=== PATIENT | male | born 1965 | race African-American/Black ===

== ENCOUNTER 2018-08-01 12:33 | Emergency (ER) | payer MEDICAID ==
[~2018-08-01] VITALS: Ht 175.3 cm; Wt 81.6 kg
[2018-08-01 13:42] LABS: BASOPHILS % 0.8 % (0.0-2.0); EOSINOPHILS % 1.3 % (0.0-5.0); HEMATOCRIT. 36.7 % (42.0-52.0); HEMOGLOBIN. 12.6 g/dL (14.0-18.0); LYMPHOCYTES % 9.1 % (20.0-50.0); MEAN CORPUSCULAR HEMOGLOBIN 32.2 pg (28.0-32.0); MEAN CORPUSCULAR VOLUME 93.7 fL (80.0-94.0); MEAN PLATELET VOLUME 9.9 fl (7.4-10.4); MONOCYTES % 7.5 % (2.0-8.0); NEUTROPHILS % 81.3 % (40.0-76.0); PLATELET 173 x1000/uL (130-400); RED BLOOD CELL COUNT 3.92 mill/uL (4.7-6.1); RED CELL DISTRIBUTION WIDTH 15.1 % (11.6-14.6)
[2018-08-01 13:49] LABS: CHLORIDE 110 mEq/L (98-107)
[2018-08-01 13:56] LABS: ETHANOL BLOOD < 10 mg/dL
[2018-08-01] MEDS ORDERED: ASPIRIN 81MG TABLET PO ONE (14:00)
[2018-08-01 14:08] LABS: INR 1.1; PARTIAL THROMBOPLASTIN TIME 29.9 sec (23.4-31.0); PROTHROMBIN TIME 10.6 sec (9.1-11.1)
[2018-08-01 15:06] LABS: CLARITY URINE CLEAR (CLEAR); COLOR URINE YELLOW (YELLOW); KETONES URINE NEGATIVE (NEGATIVE); LEUKOCYTE ESTERASE URINE NEGATIVE (NEGATIVE); NITRITE URINE NEGATIVE (NEGATIVE); OCCULT BLOOD URINE NEGATIVE (NEGATIVE); PROTEIN URINE TRACE (NEGATIVE); SPECIFIC GRAVITY URINE 1.008 (1.005-1.030); UROBILINOGEN URINE 0.2 E.U./dL (0.2-1.0)
[2018-08-01] MEDS ORDERED: FUROSEMIDE 20MG/2ML VIAL IVP ONE (15:30)
[2018-08-01 15:32] LABS: *AMPHETAMINES SCREEN URINE NEGATIVE (NEGATIVE); *BARBITURATES SCREEN URINE NEGATIVE (NEGATIVE); *BENZODIAZEPINES SCREEN URINE NEGATIVE (NEGATIVE); *COCAINE SCREEN URINE NEGATIVE (NEGATIVE); CANNABINOID URINE SCREEN PRESUMTIVE POSITIVE (NEGATIVE); METHADONE URINE SCREEN NEGATIVE (NEGATIVE); OPIATES URINE SCREEN NEGATIVE (NEGATIVE); PHENCYCLIDINE URINE SCREEN NEGATIVE (NEGATIVE)
[2018-08-01 16:00] LABS: TOTAL IRON BINDING CAPACITY 275 ug/dL (250-450)
[2018-08-01 19:22] VITALS: BP 122/81
[2018-08-01] MEDS ORDERED: AMLODIPINE 2.5MG TABLET PO SCH ×2 (21:00→21:15)
== END 2018-08-01 19:24 | disposition left against medical advice (07) ==
LOC: ER 12:33 → EDBEDREQ 14:23 → ER 19:24 → CANBEDREQ 19:37
DX: I13.0 Hypertensive heart and chronic kidney disease with heart failure and stage 1 through stage 4 chronic kidney disease, or unspecified chronic kidney disease (principal); N18.9 Chronic kidney disease, unspecified; I50.9 Heart failure, unspecified; F17.210 Nicotine dependence, cigarettes, uncomplicated; F12.10 Cannabis abuse, uncomplicated; D63.1 Anemia in chronic kidney disease; R73.9 Hyperglycemia, unspecified; Z60.2 Problems related to living alone
CPT/HCPCS: 36415; 71045; 80053; 80305; 81003; 83540; 83550; 83690; 83735; 83880; 84443; 84484; 85025; 85044; 85610; 85730; 93005; 96374; 99284; G0482; J1940

== ENCOUNTER 2019-10-01 23:42 | Inpatient (IN) | payer MEDICAID ==
[~2019-10-01] VITALS: Ht 180.3 cm; Wt 68.1 kg
[2019-10-02] VITALS (9 sets, daily range): BP systolic 172–217; BP diastolic 93–179
[2019-10-02 00:28] LABS: BASOPHILS % 0.4 % (0.0-2.0); EOSINOPHILS % 6.3 % (0.0-5.0); HEMOGLOBIN. 10.4 g/dL (14.0-18.0); LYMPHOCYTES % 26.9 % (20.0-50.0); MEAN CORPUSCULAR HEMOGLOBIN 30.9 pg (28.0-32.0); MEAN CORPUSCULAR VOLUME 92.1 fL (80.0-94.0); MEAN PLATELET VOLUME 9.4 fl (7.4-10.4); NEUTROPHILS % 59.4 % (40.0-76.0); PLATELET 204 x1000/uL (130-400); RED BLOOD CELL COUNT 3.37 mill/uL (4.7-6.1); RED CELL DISTRIBUTION WIDTH 15.5 % (11.6-14.6)
[2019-10-02 00:37] LABS: CHLORIDE 111 mEq/L (98-107); PROTHROMBIN TIME 10.2 sec (9.6-11.0)
[2019-10-02 00:42] LABS: ETHANOL BLOOD < 10 mg/dL
[2019-10-02 00:45] LABS: LDL CHOLESTEROL 101 mg/dL (5-100)
[2019-10-02] MEDS ORDERED: ASPIRIN 81MG TABLET PO ONE (00:45)
[2019-10-02] MEDS ORDERED: HYDRALAZINE 20MG/ML VIAL IV NR (01:15)
[2019-10-02 02:00] LABS: CLARITY URINE CLEAR (CLEAR); COLOR URINE YELLOW (YELLOW); KETONES URINE NEGATIVE (NEGATIVE); LEUKOCYTE ESTERASE URINE NEGATIVE (NEGATIVE); NITRITE URINE NEGATIVE (NEGATIVE); OCCULT BLOOD URINE NEGATIVE (NEGATIVE); PH URINE 5.5 (4.5-8.0); PROTEIN URINE 2+ (NEGATIVE); SPECIFIC GRAVITY URINE 1.013 (1.005-1.030); UROBILINOGEN URINE 0.2 E.U./dL (0.2-1.0)
[2019-10-02 02:24] LABS: *AMPHETAMINES SCREEN URINE NEGATIVE (NEGATIVE); *BARBITURATES SCREEN URINE NEGATIVE (NEGATIVE); *BENZODIAZEPINES SCREEN URINE NEGATIVE (NEGATIVE); *COCAINE SCREEN URINE NEGATIVE (NEGATIVE); METHADONE URINE SCREEN NEGATIVE (NEGATIVE); OPIATES URINE SCREEN NEGATIVE (NEGATIVE)
[2019-10-02 02:25] LABS: CANNABINOID URINE SCREEN PRESUMTIVE POSITIVE (NEGATIVE); PHENCYCLIDINE URINE SCREEN NEGATIVE (NEGATIVE)
[2019-10-02] MEDS ORDERED: ENOXAPARIN 40MG/0.4ML SYR SUBCUT SCH (06:45)
[2019-10-02] MEDS ORDERED: MAGNESIUM/ALUMINUM HYDROXIDE/SIMETHICONE 30ML UDC PO PRN (06:45)
[2019-10-02] MEDS ORDERED: GUAIFENESIN 200MG/10ML SUGAR FREE UDC PO PRN (06:45)
[2019-10-02] MEDS ORDERED: DIPHENHYDRAMINE 50MG/ML VIAL IV PRN (06:45)
[2019-10-02] MEDS ORDERED: ONDANSETRON HCL 4MG/2ML INJ IV PRN (06:45)
[2019-10-02] MEDS ORDERED: DOCUSATE SODIUM 100MG CAPSULE PO PRN (06:45)
[2019-10-02] MEDS ORDERED: LORAZEPAM 2MG/ML CPJ IV PRN (06:45)
[2019-10-02] MEDS ORDERED: MORPHINE SULFATE 2 MG/ML CPJ (NOT FOR IM USE) IV PRN (06:45)
[2019-10-02] MEDS ORDERED: IPRATROPIUM/ALBUTEROL 0.5-3(2.5)MG/3ML NEB HHN PRN (06:45)
[2019-10-02] MEDS: HYDRALAZINE 20MG/ML VIAL IV PRN ×2 (09:55→19:14)
[2019-10-02] MEDS: ASPIRIN 81MG EC TABLET PO SCH (09:55)
[2019-10-02] MEDS ORDERED: CLOPIDOGREL 75MG TABLET PO SCH (10:00)
[2019-10-02 11:40] LABS: CREATINE KINASE 61 IU/L (39-308)
[2019-10-02] MEDS: CLONIDINE 0.1MG TABLET PO PRN ×2 (12:57→23:54)
[2019-10-02] MEDS: SODIUM CHLORIDE 0.9% INJ 3ML FLUSH IVF SCH ×2 (14:00→22:00)
[2019-10-02 16:57] LABS: CREATINE KINASE 56 IU/L (39-308); HDL CHOLESTEROL 54 mg/dL (40-59); LDL CHOLESTEROL 100 mg/dL (5-100)
[2019-10-02 16:58] LABS: T4 FREE 1.08 ng/dL (0.76-1.46)
[2019-10-02 17:00] LABS: CREATINE KINASE MB FRACTION < 1.0 ng/mL (0.5-3.6)
[2019-10-02] MEDS ORDERED: ATORVASTATIN CALCIUM 20MG TABLET PO SCH (21:00)
[2019-10-03] VITALS (11 sets, daily range): BP systolic 147–203; BP diastolic 90–114
[2019-10-03] MEDS: SODIUM CHLORIDE 0.9% INJ 3ML FLUSH IVF SCH ×3 (06:46→21:23)
[2019-10-03 06:48] LABS: BASOPHILS % 1.2 % (0.0-2.0); HEMATOCRIT. 28.2 % (42.0-52.0); HEMOGLOBIN. 9.4 g/dL (14.0-18.0); LYMPHOCYTES % 16.3 % (20.0-50.0); MEAN CORPUSCULAR HEMOGLOBIN 30.4 pg (28.0-32.0); MEAN CORPUSCULAR VOLUME 91.8 fL (80.0-94.0); MEAN PLATELET VOLUME 8.7 fl (7.4-10.4); MONOCYTES % 7.6 % (2.0-8.0); NEUTROPHILS % 72.9 % (40.0-76.0); PLATELET 170 x1000/uL (130-400); RED BLOOD CELL COUNT 3.08 mill/uL (4.7-6.1); RED CELL DISTRIBUTION WIDTH 15.5 % (11.6-14.6)
[2019-10-03 08:08] LABS: CHLORIDE 112 mEq/L (98-107)
[2019-10-03 08:18] LABS: CREATINE KINASE 52 IU/L (39-308)
[2019-10-03 08:22] LABS: CREATINE KINASE MB FRACTION < 1.0 ng/mL (0.5-3.6)
[2019-10-03] MEDS: CLOPIDOGREL 75MG TABLET PO SCH (08:43)
[2019-10-03] MEDS: ASPIRIN 81MG EC TABLET PO SCH (08:43)
[2019-10-03] MEDS: AMLODIPINE 5MG TABLET PO SCH (10:15)
[2019-10-03] MEDS: HYDRALAZINE HCL 25MG TABLET PO SCH ×2 (13:47→21:24)
[2019-10-03] MEDS: CLONIDINE 0.1MG TABLET PO PRN (14:13)
[2019-10-03] MEDS: HYDRALAZINE 20MG/ML VIAL IV PRN (19:48)
[2019-10-03] MEDS: ATORVASTATIN CALCIUM 20MG TABLET PO SCH (21:23)
[2019-10-03] MEDS: CARVEDILOL 3.125 MG TABLET PO SCH (21:24)
[2019-10-03] MEDS: HYDROCODONE/ACETAMINOPHEN 10/325MG TABLET PO PRN (21:31)
[2019-10-04] VITALS (11 sets, daily range): BP systolic 133–195; BP diastolic 82–117
[2019-10-04] MEDS: CLONIDINE 0.1MG TABLET PO PRN ×2 (00:30→14:44)
[2019-10-04] MEDS: ACETAMINOPHEN 325MG TABLET PO PRN ×3 (04:22→18:54)
[2019-10-04] MEDS: HYDRALAZINE HCL 25MG TABLET PO SCH (06:09)
[2019-10-04] MEDS: SODIUM CHLORIDE 0.9% INJ 3ML FLUSH IVF SCH ×3 (06:09→22:35)
[2019-10-04] MEDS: HYDROCODONE/ACETAMINOPHEN 10/325MG TABLET PO PRN ×2 (06:11→21:28)
[2019-10-04 08:13] LABS: HEMOGLOBIN. 9.8 g/dL (14.0-18.0); MEAN PLATELET VOLUME 9.8 fl (7.4-10.4); PLATELET 185 x1000/uL (130-400); RED BLOOD CELL COUNT 3.26 mill/uL (4.7-6.1); RED CELL DISTRIBUTION WIDTH 15.4 % (11.6-14.6)
[2019-10-04] MEDS: CARVEDILOL 3.125 MG TABLET PO SCH ×2 (08:35→21:29)
[2019-10-04] MEDS: AMLODIPINE 5MG TABLET PO SCH ×2 (08:35→21:29)
[2019-10-04] MEDS: ASPIRIN 81MG EC TABLET PO SCH (08:35)
[2019-10-04] MEDS: CLOPIDOGREL 75MG TABLET PO SCH (08:35)
[2019-10-04] MEDS: HYDRALAZINE HCL 50MG TABLET PO SCH ×2 (13:23→22:36)
[2019-10-04] MEDS ORDERED: AMLODIPINE 10MG TABLET PO SCH (17:00)
[2019-10-04] MEDS: HYDRALAZINE 20MG/ML VIAL IV PRN (18:54)
[2019-10-04] MEDS: ATORVASTATIN CALCIUM 20MG TABLET PO SCH (21:28)
[2019-10-04] MEDS: CLONIDINE 0.1MG TABLET PO SCH (22:36)
[2019-10-05] VITALS (13 sets, daily range): BP systolic 154–182; BP diastolic 84–120
[2019-10-05] MEDS: HYDRALAZINE 20MG/ML VIAL IV PRN (00:45)
[2019-10-05 04:06] LABS: PLATELET ESTIMATE NORMAL
[2019-10-05] MEDS: CLONIDINE 0.1MG TABLET PO SCH ×3 (05:13→22:41)
[2019-10-05] MEDS: SODIUM CHLORIDE 0.9% INJ 3ML FLUSH IVF SCH ×3 (05:14→22:42)
[2019-10-05] MEDS: HYDRALAZINE HCL 50MG TABLET PO SCH ×3 (05:14→22:41)
[2019-10-05 07:54] LABS: HEMATOCRIT. 29.4 % (42.0-52.0); HEMOGLOBIN. 9.7 g/dL (14.0-18.0); MEAN CORPUSCULAR HEMOGLOBIN 30.4 pg (28.0-32.0); MEAN PLATELET VOLUME 10.1 fl (7.4-10.4); PLATELET 155 x1000/uL (130-400); RED BLOOD CELL COUNT 3.19 mill/uL (4.7-6.1); RED CELL DISTRIBUTION WIDTH 15.8 % (11.6-14.6)
[2019-10-05] MEDS: CLOPIDOGREL 75MG TABLET PO SCH (08:51)
[2019-10-05] MEDS: ASPIRIN 81MG EC TABLET PO SCH (08:51)
[2019-10-05] MEDS: CARVEDILOL 3.125 MG TABLET PO SCH (08:52)
[2019-10-05] MEDS: AMLODIPINE 5MG TABLET PO SCH (08:52)
[2019-10-05] MEDS ORDERED: AMLODIPINE 10MG TABLET PO SCH (09:00)
[2019-10-05 13:20] LABS: PLATELET ESTIMATE NORMAL
[2019-10-05] MEDS ORDERED: HYDRALAZINE 20MG/ML VIAL IV NR (15:51)
[2019-10-05] MEDS ORDERED: HYDRALAZINE 20MG/ML VIAL IV ONE (16:00)
[2019-10-05] MEDS: AMLODIPINE 10MG TABLET PO SCH (20:29)
[2019-10-05] MEDS: ATORVASTATIN CALCIUM 20MG TABLET PO SCH (20:29)
[2019-10-05] MEDS: CARVEDILOL 6.25 MG TABLET PO SCH (20:30)
[2019-10-06] VITALS (10 sets, daily range): BP systolic 114–190; BP diastolic 79–109
[2019-10-06] MEDS: CLONIDINE 0.1MG TABLET PO SCH ×2 (05:12→14:10)
[2019-10-06] MEDS: HYDRALAZINE HCL 50MG TABLET PO SCH ×2 (05:12→14:10)
[2019-10-06] MEDS: SODIUM CHLORIDE 0.9% INJ 3ML FLUSH IVF SCH ×2 (05:13→14:10)
[2019-10-06] MEDS: ASPIRIN 81MG EC TABLET PO SCH (08:49)
[2019-10-06] MEDS: CLOPIDOGREL 75MG TABLET PO SCH (08:49)
[2019-10-06] MEDS: CARVEDILOL 6.25 MG TABLET PO SCH (08:50)
[2019-10-06] MEDS: AMLODIPINE 10MG TABLET PO SCH (08:50)
[2019-10-06] MEDS: HYDRALAZINE 20MG/ML VIAL IV PRN (14:40)
[2019-10-06] MEDS ORDERED: CARVEDILOL 12.5MG TABLET PO SCH (21:00)
[2019-10-06] MEDS ORDERED: ATORVASTATIN CALCIUM 40MG TABLET PO SCH (21:00)
== END 2019-10-06 16:00 | disposition home health service (06) | DRG 45 ==
LOC: ER 23:42 → 5EST 10-02 03:11 → EDBEDREQ 10-02 03:18 → EDBEDREQTM 10-02 03:18 → ENRESERV 10-02 07:43
PROVIDERS: ADMIT Internal Medicine; ATTEND Internal Medicine
DX: I63.81 Other cerebral infarction due to occlusion or stenosis of small artery (principal); N17.0 Acute kidney failure with tubular necrosis; E43 Unspecified severe protein-calorie malnutrition; G93.41 Metabolic encephalopathy; E11.22 Type 2 diabetes mellitus with diabetic chronic kidney disease; E86.0 Dehydration; I13.10 Hypertensive heart and chronic kidney disease without heart failure, with stage 1 through stage 4 chronic kidney disease, or unspecified chronic kidney disease; N18.9 Chronic kidney disease, unspecified; E78.5 Hyperlipidemia, unspecified; F10.10 Alcohol abuse, uncomplicated; F12.90 Cannabis use, unspecified, uncomplicated; F17.210 Nicotine dependence, cigarettes, uncomplicated; Z86.73 Personal history of transient ischemic attack (TIA), and cerebral infarction without residual deficits; Z90.5 Acquired absence of kidney
CPT/HCPCS: 36415; 70551; 71045; 76770; 80048; 80053; 80061; 80305; 80320; 81003; 82550; 82553; 82575; 82962; 83721; 83735; 84439; 84443; 84484; 85025; 93005; 93306; 93880; 93970; 96374; 97162; 99291; J0360; G0480

== ENCOUNTER 2020-11-19 19:12 | Emergency (ER) | payer MEDICAID ==
[~2020-11-19] VITALS: Ht 170.2 cm; Wt 76.0 kg
[2020-11-19 20:48] VITALS: BP 110/78
== END 2020-11-19 20:52 | disposition left against medical advice (07) ==
LOC: ER 19:12
DX: R11.2 Nausea with vomiting, unspecified (principal); I12.0 Hypertensive chronic kidney disease with stage 5 chronic kidney disease or end stage renal disease; N18.6 End stage renal disease; R94.31 Abnormal electrocardiogram [ECG] [EKG]; Z93.0 Tracheostomy status
CPT/HCPCS: 71045; 93005; 99283